=== PATIENT | female | born 1960 | race Two or more races ===

== ENCOUNTER 2022-06-05 14:23 | Emergency (ER) | payer MEDICARE, MEDICAID ==
[~2022-06-05] VITALS: Ht 160 cm; Wt 82.0 kg
[2022-06-05 14:27] VITALS: BP 160/100
[2022-06-05 18:55] LABS: BASOPHILS % 0.4 % (0.0-2.0); EOSINOPHILS % 0.6 % (0.0-5.0); HEMATOCRIT. 40.8 % (36.0-48.0); HEMOGLOBIN. 13.7 g/dL (12.0-16.0); LYMPHOCYTES % 10.2 % (20.0-50.0); MEAN CORPUSCULAR HEMOGLOBIN 30.4 pg (28.0-32.0); MEAN CORPUSCULAR VOLUME 90.4 fL (81.0-99.0); MEAN PLATELET VOLUME 9.6 fl (7.4-10.4); MONOCYTES % 4.2 % (2.0-8.0); NEUTROPHILS % 84.6 % (40.0-76.0); PLATELET 264 x1000/uL (130-400); RED BLOOD CELL COUNT 4.51 mill/uL (4.2-5.4); RED CELL DISTRIBUTION WIDTH 13.5 % (11.6-14.6)
[2022-06-05 19:16] LABS: PARTIAL THROMBOPLASTIN TIME 24.9 sec (23.4-31.0); PROTHROMBIN TIME 10.5 sec (9.6-11.0)
[2022-06-05] MEDS ORDERED: OXYMETAZOLINE HCL NASAL SPRAY 15ML BOTHNSTRLS SCH (19:45)
== END 2022-06-05 21:50 | disposition home or self-care (01) ==
LOC: ER 14:23
DX: R04.0 Epistaxis (principal); I10 Essential (primary) hypertension; Z86.73 Personal history of transient ischemic attack (TIA), and cerebral infarction without residual deficits
CPT/HCPCS: 36415; 80048; 85025; 99283